=== PATIENT | female | born 1960 | race Caucasian/White ===

== ENCOUNTER → 2016-12-12 | Outpatient (CLI) | payer BC ==
[~2016-12-12] MED LIST: ACYCLOVIR PO; AMITRIPTYLINE H50 MG PO; AMITRYPTYLINE PO; BACITRACIN15 GM TP; ETODOLAC500 MG PO; FLEXERIL10 MG PO; IBUPROFEN PO; LIPITOR PO; LIPITOR20 MG PO; LOESTRIN1 TA1; MEDROL DOSEPAK4 MG PO; MOTRIN400 MG PO; MULTI-VIT PO; ORUDIS75 M1 PO; PREDNISONE PO; PRISTIQ50 MG PO; SERTRALINE HCL50 MG PO; VICODIN 5/1 TAB 5/50 PO; ZOLOFT PO; ZOVIA
--- NOTE | ~2016-12-12 | CR63 ---
[facility] A Service of [facility] & [facility] RADIOLOGY TEXT RESULTS PATIENT: IMANI MAYFIELD LOCATION: [facility] : 64 UNIT #: [id number] AGE: [address]: SANTOS FRANKS MD SEX: F ORDER DR: [id number] [facility] [address] [place], [place] [address] [id number] O MR#: [id number] Acc #: [id number] NAME: IMANI MAYFIELD : 1960 SEX: F STUDY DATE/TIME: 12/12/2016 17:48 UNIT: [facility] ROOM: STUDY DESCRIPTION: CR Chest 2 View Attending Physician: Santos Franks M.D. Referring Physician: Santos Franks M.D. Ordering Physician: Santos Franks M.D. Primary Care Physician: Mook Cuba M.D. MEDICAL IMAGING REPORT This report is preliminary unless electronic signature is present EXAM Chest PA and lateral 12/12/2016 HISTORY Positive PPD skin test on 12/12/2016. Shortness of breath on exertion. FINDINGS PA and lateral examination of the chest upright shows a good expansion of the parenchyma with a normal distribution of the pulmonary vascularity. There is no indication of congestion, effusion, infiltrate, tumor, or nodular density. The pleural reflections and diaphragmatic contours are normal. The cardiac silhouette and mediastinal anatomy is within normal limits. IMPRESSION Normal chest. Dictated by... Rik Ty M.D. THIS IS AN ELECTRONICALLY VERIFIED REPORT Rik Ty M.D. at 12/14/2016 7:27 AM FRANNY/andreas TD: 12/13/2016 11:14 JOB #: [id number] MEDICAL IMAGING REPORT Page 1 of 1 COPY
== END | disposition home or self-care (01) ==
LOC: CRAD 17:01
DX: R76.11 Nonspecific reaction to tuberculin skin test without active tuberculosis (principal)
CPT/HCPCS: 71020